=== PATIENT | female | born 1945 | race Caucasian/White ===

== ENCOUNTER 2018-04-05 19:00 | Inpatient (IN) | payer MEDICARE ==
[~2018-04-05] VITALS: Ht 167.6 cm; Wt 76.8 kg
[2018-04-05 21:00] VITALS: BP 129/80
[2018-04-05] MEDS ORDERED: DOCUSATE 100 MG CAPSULE PO PRN (21:30)
[2018-04-05] MEDS: PLEASE ENTER HEIGHT AND WEIGHT MC SCH (21:30)
[2018-04-05] MEDS ORDERED: BISACODYL 10 MG SUPP PR PRN (21:30)
[2018-04-05] MEDS ORDERED: ONDANSETRON 2MG/ML, 2ML IVPush PRN (21:30)
[2018-04-05] MEDS ORDERED: POLYETHYLENE GLYCOL 17 GM PACKET PO PRN (21:30)
[2018-04-05] MEDS: ACETAMINOPHEN 325 MG TABLET PO PRN (23:00)
[2018-04-05] MEDS: ATORVASTATIN 40 MG TABLET PO SCH (23:00)
[2018-04-06 02:48] VITALS: BP 107/69
[2018-04-06] MEDS ORDERED: BUDE10.22 INH ×2 (03:12→12:41)
[2018-04-06 05:26] LABS: ALBUMIN 3.3 g/dL (3.4-5.0); ANION GAP 8 mmol/L (5-15); CALCIUM 8.9 mg/dL (8.5-10.1); CHLORIDE 107 mmol/L (98-107)
[2018-04-06 05:27] LABS: BASOPHILS # (AUTO) 0.02 x10^3/uL (0-0.1); BASOPHILS % (AUTO) 0 % (0-1); EOSINOPHILS # (AUTO) 0.08 x10^3/uL (0-0.4); EOSINOPHILS % (AUTO) 1 % (1-7); LYMPHOCYTES # (AUTO) 1.51 x10^3/uL (1-3.4); LYMPHOCYTES % (AUTO) 16 % (22-44); MD NO; MEAN CORPUSCULAR HEMOGLOBIN 29.6 pg (27.0-34.8); MEAN CORPUSCULAR HGB CONC 33.6 g/dL (32.4-35.8); MEAN CORPUSCULAR VOLUME 88.2 fL (80-100); MEAN PLATELET VOLUME 9.1 fL (7.4-10.4); MONOCYTES # (AUTO) 0.62 x10^3/uL (0.2-0.8); MONOCYTES % (AUTO) 7 % (2-9); NEUTROPHILS # (AUTO) 7.32 x10^3/uL (1.8-6.8); NEUTROPHILS % (AUTO) 77 % (42-75); PLATELET COUNT 268 x10^3/uL (130-400); RED BLOOD COUNT 4.78 x10^6/uL (3.82-5.3); RED CELL DISTRIBUTION WIDTH 14.1 % (9.6-15.2)
[2018-04-06] MEDS: PLEASE ENTER HEIGHT AND WEIGHT MC SCH ×2 (05:30→11:45)
[2018-04-06 05:31] LABS: ALANINE AMINOTRANSFERASE 18 U/L (12-78); ALKALINE PHOSPHATASE 75 U/L (45-117); BILIRUBIN,TOTAL 0.6 mg/dL (0.2-1.0); CHOL/HDL RATIO 3.1; CHOLESTEROL, TOTAL 132 mg/dL (140-239); CREATININE 0.63 mg/dL (0.55-1.02); HDL CHOL % 33 % (28-40); HDL CHOLESTEROL (DIRECT) 43 mg/dL (40-60); LDL CHOLESTEROL,CALCULATED 78 mg/dL (54-169); LDL/HDL RATIO 1.8 (0.5-3.0); TOTAL PROTEIN 7.2 g/dL (6.4-8.2); TRIGLYCERIDES 55 mg/dL (50-200); VLDL CHOLESTEROL 11 mg/dL (0-25)
[2018-04-06 07:11] VITALS: BP 108/67
[2018-04-06] MEDS: ACETAMINOPHEN 325 MG TABLET PO PRN ×2 (07:54→17:56)
[2018-04-06] MEDS: CLOPIDOGREL 75 MG TABLET PO SCH (07:54)
[2018-04-06] MEDS ORDERED: MELATONIN 5 MG TABLET PO PRN (11:30)
[2018-04-06] MEDS ORDERED: TRIA10.8 NAS (12:44)
[2018-04-06] MEDS ORDERED: TRIAMCINOLONE 55 MCG NS PRN (13:30)
[2018-04-06 13:36] VITALS: BP 110/70
[2018-04-06 19:20] VITALS: BP 105/65
[2018-04-06] MEDS: BUDESONIDE INH SCH (21:00)
[2018-04-06] MEDS: FORMOTEROL INH SCH (21:00)
[2018-04-06] MEDS: ATORVASTATIN 40 MG TABLET PO SCH (22:09)
[2018-04-07 02:03] VITALS: BP 111/56
[2018-04-07 07:26] VITALS: BP 115/74
[2018-04-07] MEDS: FORMOTEROL INH SCH ×2 (09:00→21:00)
[2018-04-07] MEDS: BUDESONIDE INH SCH ×2 (09:00→21:00)
[2018-04-07] MEDS: CLOPIDOGREL 75 MG TABLET PO SCH (09:17)
[2018-04-07] MEDS: ACETAMINOPHEN 325 MG TABLET PO PRN (09:18)
[2018-04-07 14:07] VITALS: BP 110/73
[2018-04-07 20:00] VITALS: BP 111/60
[2018-04-07] MEDS: ATORVASTATIN 40 MG TABLET PO SCH (22:09)
[2018-04-08 00:03] VITALS: BP 119/56
[2018-04-08 04:05] VITALS: BP 142/85
[2018-04-08 08:02] VITALS: BP 115/73
[2018-04-08] MEDS: FORMOTEROL INH SCH ×2 (09:00→20:53)
[2018-04-08] MEDS: BUDESONIDE INH SCH ×2 (09:00→20:53)
[2018-04-08] MEDS: CLOPIDOGREL 75 MG TABLET PO SCH (10:24)
[2018-04-08 14:21] VITALS: BP 104/71
[2018-04-08 19:38] VITALS: BP 113/76
[2018-04-08] MEDS: ATORVASTATIN 40 MG TABLET PO SCH (20:52)
[2018-04-09 00:44] VITALS: BP 125/80
[2018-04-09 03:50] VITALS: BP 115/74
[2018-04-09 07:43] VITALS: BP 116/78
[2018-04-09] MEDS: FORMOTEROL INH SCH (08:47)
[2018-04-09] MEDS: CLOPIDOGREL 75 MG TABLET PO SCH (08:47)
[2018-04-09] MEDS: BUDESONIDE INH SCH (08:47)
[2018-04-09] MEDS ORDERED: CLOP75TA PO (12:33)
[2018-04-09] MEDS ORDERED: DOCU-131 PO (12:33)
[2018-04-09] MEDS ORDERED: ATOR40TA78 PO (12:33)
[2018-04-09] MEDS ORDERED: MELA5TAB19 PO (12:33)
[2018-04-09 14:38] VITALS: BP 119/84
== END 2018-04-09 15:14 | disposition home or self-care (01) | DRG 40 ==
LOC: 4EST 20:26 → DCLOUNGE 04-09 14:58
PROVIDERS: ADMIT Hospitalist; ATTEND Hospitalist
PROC: 0JH632Z Insertion of Monitoring Device into Chest Subcutaneous Tissue and Fascia, Percutaneous Approach (ICD-10-PCS; principal; 2018-04-07)
DX: I63.511 Cerebral infarction due to unspecified occlusion or stenosis of right middle cerebral artery (principal); G93.40 Encephalopathy, unspecified; J45.909 Unspecified asthma, uncomplicated; L30.9 Dermatitis, unspecified; H91.90 Unspecified hearing loss, unspecified ear; F32.9 Major depressive disorder, single episode, unspecified; R29.810 Facial weakness; Z66 Do not resuscitate; Z82.5 Family history of asthma and other chronic lower respiratory diseases; Z82.61 Family history of arthritis; Z85.828 Personal history of other malignant neoplasm of skin; Z88.0 Allergy status to penicillin; Z88.8 Allergy status to other drugs, medicaments and biological substances; Z86.19 Personal history of other infectious and parasitic diseases
CPT/HCPCS: 33282; 36415; 70551; 80053; 80061; 85025; 93306; 93880; C1764; J2405; 92523-GN

== ENCOUNTER 2020-05-31 09:48 | Day surgery (SDC) | payer MEDICARE ==
[~2020-05-31] VITALS: Ht 163.8 cm; Wt 64.1 kg
[~2020-05-31 09:48] MED LIST: ATOR40TA78 PO; BUDE10.22 INH; CLOP75TA PO; DOCU-131 PO; MELA5TAB14 PO; TRIA10.8 NAS
== END 2020-05-31 14:12 | disposition home or self-care (01) ==
LOC: CACL 09:48
PROVIDERS: ATTEND Internal Medicine Cardiovascular Disease
DX: Z45.09 Encounter for adjustment and management of other cardiac device (principal); E78.5 Hyperlipidemia, unspecified; Z79.899 Other long term (current) drug therapy; Z86.73 Personal history of transient ischemic attack (TIA), and cerebral infarction without residual deficits; Z88.8 Allergy status to other drugs, medicaments and biological substances; Z88.0 Allergy status to penicillin; Z82.5 Family history of asthma and other chronic lower respiratory diseases
CPT/HCPCS: 33286